=== PATIENT | male | born 1955 | race Caucasian/White ===

== ENCOUNTER 2020-10-08 08:54 | Emergency (ER) | payer BC ==
[~2020-10-08] VITALS: Ht 180.3 cm; Wt 72.6 kg
[2020-10-08] MEDS ORDERED: NAPROSYN500 MG PO (09:14)
[2020-10-08 09:45] VITALS: BP 124/74
== END 2020-10-08 09:45 | disposition home or self-care (01) ==
LOC: ER 08:54
DX: M17.12 Unilateral primary osteoarthritis, left knee (principal); I10 Essential (primary) hypertension; E11.9 Type 2 diabetes mellitus without complications